=== PATIENT | female | born 1990 | race Caucasian/White ===

== ENCOUNTER 2017-06-12 08:47 | Emergency (ER) | payer OTHER ==
[~2017-06-12] VITALS: Ht 167.6 cm; Wt 129.8 kg
[2017-06-12 08:54] VITALS: BP 124/87
[2017-06-12] MEDS ORDERED: NACL 0.9% 500 ML IV ONE (09:39)
[2017-06-12] MEDS ORDERED: ONDANSETRON 4 MG/2 ML VIAL IVP ONE ×2 (09:40→10:55)
[2017-06-12] MEDS ORDERED: KETOROLAC 30 MG/ML VIAL IVP ONE (09:40)
[2017-06-12 10:33] LABS: BASOPHILS # (AUTO) 0.2 K/uL (0.00-0.22); BASOPHILS % (AUTO) 1.9 % (0.0-2.0); EOSINOPHILS # (AUTO) 0.2 K/uL (0-0.4); EOSINOPHILS % (AUTO) 1.4 % (0.0-4.0); HEMATOCRIT 44.4 % (36-48); HEMOGLOBIN 14.5 g/dL (12.0-16.0); LYMPHOCYTES # (AUTO) 1.3 K/uL (2.5-16.5); LYMPHOCYTES % (AUTO) 10.6 % (20.5-51.1); MEAN CORPUSCULAR HEMOGLOBIN 26 pg (27-31); MEAN CORPUSCULAR HGB CONC 33 g/dL (33-37); MEAN CORPUSCULAR VOLUME 79 fL (80-94); MONOCYTES # (AUTO) 0.9 K/uL (0.8-1.0); NEUTROPHILS # (AUTO) 9.6 K/uL (1.8-7.7); NEUTROPHILS % (AUTO) 79.1 % (42.2-75.2); PLATELET COUNT (AUTO) 221 K/uL (140-450); RED BLOOD CELL COUNT(AUTO) 5.65 MIL/uL (4.20-5.40); RED CELL DISTRIBUTION WIDTH 13.5 % (11.6-13.7); WHITE BLOOD COUNT (AUTO) 12.3 K/uL (4.8-10.8)
[2017-06-12 10:44] LABS: ANION GAP 16.1 (8-16); CARBON DIOXIDE 23.7 mmol/L (21-32); CREATININE 0.6 mg/dL (0.6-1.3); POTASSIUM 3.8 mmol/L (3.5-5.1)
[2017-06-12 10:50] LABS: ALBUMIN 3.7 g/dL (3.4-5.0); TOTAL BILIRUBIN 0.6 mg/dL (0.0-1.0)
--- NOTE | 2017-06-12 11:01 | NUR ---
pt c/o 07/01 pain to lower abd and severe nausea---md notified zofran iv written but no analgesic at this time. MD to speak with pt
[2017-06-12] MEDS ORDERED: PANTOPRAZOLE 40 MG INJ VIAL IVP ONE (11:05)
[2017-06-12] MEDS ORDERED: ACETAMINOPHEN EXTRA STRENGTH 500 MG TAB PO ONE (11:05)
[2017-06-12] MEDS ORDERED: IBUPROFEN 800 MG TAB PO ONE (11:05)
[2017-06-12 12:15] LABS: APPEARANCE,URINE HAZY (CLEAR); BILIRUBIN,URINE NEGATIVE (NEGATIVE); BLOOD, URINE NEGATIVE (NEGATIVE); COLOR,URINE YELLOW (YELLOW); LEUKOCYTE ESTERASE ,URINE NEGATIVE (NEGATIVE); NITRITE, URINE NEGATIVE (NEGATIVE); PH,URINE 8.5 (5.0-9.0); UGLUCOSE NEGATIVE (NEGATIVE)
[2017-06-12 12:38] VITALS: BP 142/90
--- NOTE | 2017-06-12 12:39 | NUR ---
Patient discharged with v/s stable. Written and verbal after care instructions given and explained. Patient alert, oriented and verbalized understanding of instructions. Ambulatory with steady gait. All questions addressed prior to discharge. ID band removed. Patient advised to follow up with PMD. Rx of vit b 6/ motrin given. Patient educated on indication of medication including possible reaction and side effects. Opportunity to ask questions provided and answered.
== END 2017-06-12 12:39 | disposition home or self-care (01) ==
LOC: MED 08:47
DX: O26.891 Other specified pregnancy related conditions, first trimester (principal); R10.9 Unspecified abdominal pain; J45.909 Unspecified asthma, uncomplicated; I10 Essential (primary) hypertension; Z90.49 Acquired absence of other specified parts of digestive tract; Z3A.01 Less than 8 weeks gestation of pregnancy
CPT/HCPCS: 36415; 76801; 80053; 81003; 81025; 83690; 84702; 85025; 86901; 96361; 96374; 96375; 96376; 99285; C9113; J1885; J2405; J7030; Q0092

== ENCOUNTER 2018-01-19 10:01 | Inpatient (IN) | payer OTHER ==
[~2018-01-19] VITALS: Ht 167.6 cm; Wt 127.0 kg
[2018-01-19] MEDS ORDERED: PNV11TAB3 PO (10:31)
[2018-01-19] MEDS ORDERED: OXYTOCIN 20 UNITS in LACTATED RINGERS 1,000 ML IV SCH (10:32)
[2018-01-19] MEDS ORDERED: OXYTOCIN 10 UNITS/ML VIAL IM PRN (10:35)
[2018-01-19] MEDS ORDERED: NALBUPHINE 10 MG/ML AMP IVP PRN (10:35)
[2018-01-19] MEDS ORDERED: MISOPROSTOL 25 MCG TAB VG PRN (10:35)
[2018-01-19] MEDS ORDERED: METHYLERGONOVINE 0.2 MG/ML AMP IM PRN (10:35)
[2018-01-19] MEDS ORDERED: PROMETHAZINE 25 MG/ML VIAL IVP PRN (10:35)
[2018-01-19] MEDS ORDERED: AMPICILLIN 2,000 MG in NACL 0.9% 100 ML IV SCH (11:00)
[2018-01-19 11:05] LABS: BASOPHILS % (AUTO) 0.5 % (0.0-2.0); EOSINOPHILS # (AUTO) 0.1 K/uL (0-0.4); EOSINOPHILS % (AUTO) 1.1 % (0.0-4.0); HEMOGLOBIN 12.5 g/dL (12.0-16.0); LYMPHOCYTES # (AUTO) 1.6 K/uL (2.5-16.5); LYMPHOCYTES % (AUTO) 15.8 % (20.5-51.1); MEAN CORPUSCULAR HEMOGLOBIN 25 pg (27-31); MEAN CORPUSCULAR HGB CONC 32 g/dL (33-37); MEAN CORPUSCULAR VOLUME 76.5 fL (80-94); MONOCYTES # (AUTO) 0.6 K/uL (0.8-1.0); MONOCYTES % (AUTO) 5.5 % (1.7-9.3); NEUTROPHILS # (AUTO) 7.8 K/uL (1.8-7.7); NEUTROPHILS % (AUTO) 77.1 % (42.2-75.2); PLATELET COUNT (AUTO) 184 K/uL (140-450); RED CELL DISTRIBUTION WIDTH 14.7 % (11.6-13.7); WHITE BLOOD COUNT (AUTO) 10.1 K/uL (4.8-10.8)
--- NOTE | 2018-01-19 11:32 | NUR ---
PATIENT HAS BEEN SCREENED AND CATEGORIZED LOW NUTRITION RISK. PATIENT WILL BE SEEN WITHIN 7 DAYS OF ADMISSION. 01/25/[address]
[2018-01-19] MEDS ORDERED: AMPICILLIN 2,000 MG VIAL ONE ×2 (11:37→21:07)
[2018-01-19 11:43] LABS: APPEARANCE,URINE CLEAR (CLEAR); BILIRUBIN,URINE NEGATIVE (NEGATIVE); BLOOD, URINE NEGATIVE (NEGATIVE); COLOR,URINE YELLOW (YELLOW); LEUKOCYTE ESTERASE ,URINE NEGATIVE (NEGATIVE); NITRITE, URINE NEGATIVE (NEGATIVE); UGLUCOSE NEGATIVE (NEGATIVE)
[2018-01-19] MEDS: LACTATED RINGERS 1,000 ML IV SCH ×2 (11:50→23:05)
[2018-01-19 13:15] VITALS: BP 137/79
[2018-01-19] MEDS ORDERED: AMPICILLIN 1,000 MG VIAL ONE ×3 (15:29→23:42)
[2018-01-19] MEDS ORDERED: MISOPROSTOL 25 MCG TAB ONE (15:36)
[2018-01-19] MEDS: AMPICILLIN 1,000 MG VIAL IVP SCH ×2 (19:41→23:41)
[2018-01-19] MEDS ORDERED: OXYTOCIN 20 UNITS/LR PREMIX 1,000 ML IV ONE (20:14)
[2018-01-19] MEDS: ACETAMINOPHEN 325 MG TAB PO PRN (20:46)
[2018-01-19] MEDS ORDERED: ACETAMINOPHEN 325 MG TAB ONE (20:47)
[2018-01-19] MEDS ORDERED: BUPIVACAINE 0.125%/NS PREMIX 250 ML ONE (22:08)
[2018-01-19] MEDS ORDERED: LABETALOL 200 MG TAB ONE (23:23)
[2018-01-19] MEDS ORDERED: LABETALOL 200 MG TAB PO SCH (23:30)
[2018-01-20] MEDS ORDERED: AMPICILLIN 1,000 MG VIAL ONE ×5 (03:24→19:32)
[2018-01-20] MEDS ORDERED: IBUPROFEN 800 MG TAB PO PRN (03:30)
[2018-01-20] MEDS ORDERED: TEMAZEPAM 15 MG CAP PO PRN ×2 (03:30→21:50)
[2018-01-20] MEDS ORDERED: OXYTOCIN 10 UNITS/ML VIAL IM PRN ×2 (03:30→21:50)
[2018-01-20] MEDS ORDERED: BENZOCAINE/MENTHOL 20%-0.5% 60 GM CAN TP PRN ×2 (03:30→21:50)
[2018-01-20] MEDS ORDERED: MEASLES, MUMPS, AND RUBELLA 1 VIAL SQVAC PRN ×2 (03:30→21:50)
[2018-01-20] MEDS ORDERED: oxyCODONE/APAP 5/325 MG 1 TAB TAB PO PRN ×2 (03:30→21:50)
[2018-01-20] MEDS ORDERED: METHYLERGONOVINE 0.2 MG/ML AMP IM PRN ×2 (03:30→21:50)
[2018-01-20] MEDS: AMPICILLIN 1,000 MG VIAL IVP SCH ×4 (03:40→15:47)
[2018-01-20] MEDS: ACETAMINOPHEN 325 MG TAB PO PRN (04:18)
[2018-01-20] MEDS ORDERED: ACETAMINOPHEN 325 MG TAB ONE (04:19)
[2018-01-20] MEDS: LACTATED RINGERS 1,000 ML IV SCH ×2 (06:13→16:00)
[2018-01-20] MEDS ORDERED: LABETALOL 200 MG TAB PO SCH (09:00)
[2018-01-20] MEDS ORDERED: LABETALOL 200 MG TAB ONE (11:15)
[2018-01-20] MEDS ORDERED: INFLUENZA VIRUS VACCINE QUAD 0.5 ML SYR IMVAC SCH (11:30)
[2018-01-20] MEDS: LABETALOL 200 MG TAB PO SCH (11:40)
[2018-01-20] MEDS ORDERED: OXYTOCIN 10 UNITS/ML VIAL ONE ×2 (15:57→21:14)
[2018-01-20] MEDS ORDERED: BUPIVACAINE 0.125%/NS PREMIX 250 ML ONE (16:07)
[2018-01-20] MEDS ORDERED: PROMETHAZINE 25 MG/ML VIAL ONE (16:41)
[2018-01-20] MEDS ORDERED: ONDANSETRON 4 MG/2 ML VIAL IVP PRN (16:45)
[2018-01-20] MEDS ORDERED: ONDANSETRON 4 MG/2 ML VIAL ONE (16:48)
[2018-01-20] MEDS ORDERED: DOCUSATE SOD/SENNA 50/8.6 MG 1 TAB PO SCH (21:00)
[2018-01-20] MEDS ORDERED: SODIUM PHOSPHATE 118 ML ENEM RC PRN (21:50)
[2018-01-20] MEDS ORDERED: HYDROcodone/APAP 5/325 MG 1 TAB TAB PO PRN (21:50)
[2018-01-20] MEDS ORDERED: METHYLERGONOVINE 0.2 MG TAB PO PRN (21:50)
[2018-01-20] MEDS ORDERED: DOCUSATE SOD/SENNA 50/8.6 MG 1 TAB PO PRN (22:00)
[2018-01-21] MEDS: LABETALOL 200 MG TAB PO SCH ×2 (01:06→09:35)
[2018-01-21] MEDS: HYDROcodone/APAP 5/325 MG 1 TAB TAB PO PRN ×2 (01:19→20:15)
[2018-01-21] MEDS ORDERED: AMMONIA AROMATIC 1 INHL INH ONE (02:24)
[2018-01-21 06:24] LABS: HEMATOCRIT 37.2 % (36-48); HEMOGLOBIN 11.6 g/dL (12.0-16.0)
[2018-01-21] MEDS ORDERED: DOCUSATE SOD/SENNA 50/8.6 MG 1 TAB PO SCH (21:00)
[2018-01-22] MEDS: LABETALOL 200 MG TAB PO SCH ×2 (09:11→20:43)
[2018-01-22] MEDS ORDERED: IBUP-1842 PO (14:33)
[2018-01-22] MEDS ORDERED: NITR100C7 PO (14:41)
[2018-01-22] MEDS ORDERED: LABE100T8 PO (14:42)
[2018-01-22] MEDS ORDERED: DM/P118S7 PO (14:46)
[2018-01-22] MEDS: HYDROcodone/APAP 5/325 MG 1 TAB TAB PO PRN (20:43)
== END 2018-01-22 21:20 | disposition home or self-care (01) | DRG 560 ==
LOC: MLD 10:06 → MFCC 01-21 00:53
PROVIDERS: ADMIT Obstetrics & Gynecology; ATTEND Obstetrics & Gynecology
PROC: 10E0XZZ Delivery of Products of Conception, External Approach (ICD-10-PCS; principal; 2018-01-20)
PROC: 3E033VJ Introduction of Other Hormone into Peripheral Vein, Percutaneous Approach (ICD-10-PCS; 2018-01-20)
PROC: 00HU33Z Insertion of Infusion Device into Spinal Canal, Percutaneous Approach (ICD-10-PCS; 2018-01-20)
PROC: 3E0R3BZ Introduction of Anesthetic Agent into Spinal Canal, Percutaneous Approach (ICD-10-PCS; 2018-01-20)
DX: O99.824 Streptococcus B carrier state complicating childbirth (principal); Z68.42 Body mass index [BMI] 45.0-49.9, adult; Z37.0 Single live birth; Z3A.39 39 weeks gestation of pregnancy; O10.92 Unspecified pre-existing hypertension complicating childbirth; O99.52 Diseases of the respiratory system complicating childbirth; J45.909 Unspecified asthma, uncomplicated; O99.354 Diseases of the nervous system complicating childbirth; O99.214 Obesity complicating childbirth; E66.01 Morbid (severe) obesity due to excess calories; O77.0 Labor and delivery complicated by meconium in amniotic fluid; G47.33 Obstructive sleep apnea (adult) (pediatric); Z28.21 Immunization not carried out because of patient refusal
CPT/HCPCS: 36415; 51702; 59200; 59409; 81003; 85018; 85025; 86592; 86886; 86900; 86901; 90658; J0290; J2405; J2550; J2590; J3490; J7120

== ENCOUNTER 2019-02-12 09:56 | Emergency (ER) | payer OTHER ==
[~2019-02-12] VITALS: Ht 167.6 cm; Wt 133.8 kg
[~2019-02-12 09:56] MED LIST: IBUP-1842 PO; LABE100T8 PO; NITR100C7 PO; PNV11TAB3 PO
[2019-02-12 10:01] VITALS: BP 129/75
--- NOTE | 2019-02-12 10:11 | NUR ---
PT AMBULATED TO ED BED 07
--- NOTE | 2019-02-12 10:20 | NUR ---
PATIENT PRESENTS TO ED WITH C/O RT EYE PAIN, SWOLLEN AND WITH THICK YELLOW DISCHARGE X 1 DAY. RT EYELID NOTED RED AND SWOLLEN. PT STATES PAIN IS 10/10;BURNING AND ITCHING SENSATION. DENIES NAUSEA, VOMITING OR FEVER. AFEBRILE AT THIS TIME. VSS. PATIENT POSITIONED FOR COMFORT; HOB ELEVATED; BEDRAILS UP X1; BED DOWN. PENDING ER MD EVALUATION.
--- NOTE | 2019-02-12 12:34 | NUR ---
ER MD DR ROWE AT BEDSIDE
[2019-02-12] MEDS ORDERED: ERYTHROMYCIN 0.5% OPTH OINT 1 GM TUBE OP ONE (12:45)
[2019-02-12 13:27] VITALS: BP 109/75
--- NOTE | 2019-02-12 13:27 | NUR ---
Patient discharged with v/s stable. Written and verbal after care instructions given and explained. Patient alert, oriented and verbalized understanding of instructions. Ambulatory with steady gait. All questions addressed prior to discharge. ID band removed. Patient advised to follow up with PMD. Rx of ERYTHROMYCIN OINTMENT 0.5% given. Patient educated on indication of medication including possible reaction and side effects. Opportunity to ask questions provided and answered.
== END 2019-02-12 13:27 | disposition home or self-care (01) ==
LOC: MED 09:56
DX: H10.9 Unspecified conjunctivitis (principal); B96.89 Other specified bacterial agents as the cause of diseases classified elsewhere; J45.909 Unspecified asthma, uncomplicated; I10 Essential (primary) hypertension; Z90.49 Acquired absence of other specified parts of digestive tract; Z79.899 Other long term (current) drug therapy
CPT/HCPCS: 99283; C1758

== ENCOUNTER 2019-04-02 23:59 | Emergency (ER) | payer OTHER ==
[~2019-04-02] VITALS: Ht 170.2 cm; Wt 133.4 kg
[2019-04-03 00:08] VITALS: BP 122/85
--- NOTE | 2019-04-03 00:20 | NUR ---
TO LOBBY A/W BED,AMBULATORY, EKG DONE , ERMD NOTED
--- NOTE | 2019-04-03 03:40 | NUR ---
TO BED # 07 AMBULATORY
--- NOTE | 2019-04-03 04:15 | NUR ---
28 YO F BIB SELF PRESENTS TO ED C/O 8/10 CHEST PAIN, DIFFICULTY BREATHING, AND EPIGASTRIC PAIN X 10 DAYS. PT ALSO C/O N/V AND DIZZINESS X 3 DAYS. PT STATES SHE FEELS NAUSEOUS AND DIZZY AT THIS TIME. LAST EMESIS X 6 HOURS AGO. -- PT AWAKE, ALERT, CALM, COOPERATIVE. ANSWERING QUESTIONS APPROPRIATELY. BEHAVIOR AGE APPROPRIATE. -- SKIN PINK, WARM, DRY. BREATHING EVEN, UNLABORED. SPO2 96% ON RA. PMH-- HTN, SLEEP APNEA, ASTHMA
--- NOTE | 2019-04-03 05:05 | NUR ---
DR. GAMBINO EVALUATING AT BEDSIDE.
[2019-04-03] MEDS ORDERED: FAMOTIDINE 20 MG/2 ML VIAL IVP ONE (05:15)
[2019-04-03] MEDS ORDERED: LIDOCAINE VISCOUS 2% 20 ML UDC PO ONE (05:15)
[2019-04-03] MEDS ORDERED: ALUMINUM HYD/MAG/SIMETHICONE 30 ML UDC PO ONE (05:15)
[2019-04-03] MEDS ORDERED: DICYCLOMINE 20 MG/2 ML VIAL IM ONE (05:15)
--- NOTE | 2019-04-03 06:25 | NUR ---
URINE COLLECTED AND SENT TO LAB.
--- NOTE | 2019-04-03 06:30 | NUR ---
LABS DRAWN BY RN AT BEDSIDE.
[2019-04-03 06:51] LABS: BASOPHILS # (AUTO) 0.2 K/uL (0.00-0.22); BASOPHILS % (AUTO) 1.7 % (0.0-2.0); EOSINOPHILS # (AUTO) 0.4 K/uL (0-0.4); EOSINOPHILS % (AUTO) 3.6 % (0.0-4.0); HEMOGLOBIN 14.5 g/dL (12.0-16.0); LYMPHOCYTES # (AUTO) 2.4 K/uL (2.5-16.5); LYMPHOCYTES % (AUTO) 21.7 % (20.5-51.1); MEAN CORPUSCULAR HEMOGLOBIN 25 pg (27-31); MEAN CORPUSCULAR HGB CONC 32 g/dL (33-37); MEAN CORPUSCULAR VOLUME 76.8 fL (80-94); MONOCYTES # (AUTO) 0.6 K/uL (0.8-1.0); MONOCYTES % (AUTO) 4.9 % (1.7-9.3); NEUTROPHILS # (AUTO) 7.6 K/uL (1.8-7.7); NEUTROPHILS % (AUTO) 68.1 % (42.2-75.2); PLATELET COUNT (AUTO) 252 K/uL (140-450); RED BLOOD CELL COUNT(AUTO) 5.86 MIL/uL (4.20-5.40); RED CELL DISTRIBUTION WIDTH 14.8 % (11.6-13.7); WHITE BLOOD COUNT (AUTO) 11.2 K/uL (4.8-10.8)
[2019-04-03 07:01] LABS: CARBON DIOXIDE 25.8 mmol/L (21-32); CREATININE 0.8 mg/dL (0.6-1.3); POTASSIUM 3.8 mmol/L (3.5-5.1)
[2019-04-03 07:06] LABS: ALBUMIN 4.2 g/dL (3.4-5.0); TOTAL BILIRUBIN 0.7 mg/dL (0.0-1.0)
--- NOTE | 2019-04-03 07:11 | NUR ---
RECEIVED REPORT FROM ADRIEL CAMARENA
--- NOTE | 2019-04-03 07:49 | NUR ---
PT REPORTS N/V AND EPIGASTRIC PAIN AT THIS TIME. PT DENIES SOB. ER NOTIFIED.
[2019-04-03] MEDS ORDERED: KETOROLAC 30 MG/ML VIAL IM ONE (08:30)
[2019-04-03] MEDS ORDERED: KETOROLAC 30 MG/ML VIAL IM STA (08:45)
--- NOTE | 2019-04-03 08:45 | NUR ---
OKAY TO GIVE TORADOL 30MG IVP PER MD.
--- NOTE | 2019-04-03 09:42 | NUR ---
Patient discharged with v/s stable. Written and verbal after care instructions given and explained. Patient alert, oriented and verbalized understanding of instructions. Ambulatory with steady gait. All questions addressed prior to discharge. ID band removed. Patient advised to follow up with PMD. Rx of AZITHROMYCIN, MYLANTA, AND GAUIATUSSIN given. Patient educated on indication of medication including possible reaction and side effects. Opportunity to ask questions provided and answered.
[2019-04-03 09:46] VITALS: BP 119/60
== END 2019-04-03 09:42 | disposition home or self-care (01) ==
LOC: MED 23:59
DX: R10.13 Epigastric pain (principal); R07.89 Other chest pain; J45.909 Unspecified asthma, uncomplicated; I10 Essential (primary) hypertension; Z79.899 Other long term (current) drug therapy
CPT/HCPCS: 36415; 71045; 80053; 81025; 83690; 84484; 85025; 85379; 93005; 96372; 96374; 99284; J0500; J1885; J3490; Q0092

== ENCOUNTER 2019-04-05 02:21 | Emergency (ER) | payer OTHER ==
[~2019-04-05] VITALS: Ht 170.2 cm; Wt 133.8 kg
[2019-04-05 02:21] VITALS: BP 137/64
--- NOTE | 2019-04-05 02:21 | NUR ---
PT JUANA BLS. TAKEN TO BED 2
[2019-04-05 02:56] VITALS: BP 137/64
--- NOTE | 2019-04-05 02:56 | NUR ---
28 Y/O F BIBA WITH C/O SOB FOR 1 HOUR PRIOR TO ARRIVAL. C/O DIZZINESS AND COUGH X 4 DAYS. BILATERAL LUNG LARIOS CLEAR. O2 SATURATION MAINTAINED AT 97% ON ROOM AIR. CAP REFILL LESS THAN 3 SECONDS. SKIN COLOR NORMAL PER ETHNICITY. ERMD NOTIFIED. WILL CONTINUE TO MONITOR. -20G IV INSERTED BY EMS.
[2019-04-05] MEDS ORDERED: PANTOPRAZOLE 40 MG TABEC PO ONE (03:05)
[2019-04-05] MEDS ORDERED: ALUMINUM HYD/MAG/SIMETHICONE 30 ML UDC PO ONE (03:05)
--- NOTE | 2019-04-05 03:33 | NUR ---
Patient discharged with v/s stable. Written and verbal after care instructions given and explained. Patient alert, oriented and verbalized understanding of instructions. Ambulatory with steady gait. All questions addressed prior to discharge. ID band removed. Patient advised to follow up with PMD. Rx of Protonix and Maalox given. Patient educated on indication of medication including possible reaction and side effects. Opportunity to ask questions provided and answered.
== END 2019-04-05 03:33 | disposition home or self-care (01) ==
LOC: MED 02:21
DX: K21.9 Gastro-esophageal reflux disease without esophagitis (principal); J45.909 Unspecified asthma, uncomplicated; I10 Essential (primary) hypertension; Z79.899 Other long term (current) drug therapy
CPT/HCPCS: 99283

== ENCOUNTER 2020-12-05 19:03 | Emergency (ER) | payer OTHER ==
[~2020-12-05] VITALS: Ht 167.6 cm; Wt 120.7 kg
[2020-12-05 19:29] VITALS: BP 133/80
--- NOTE | 2020-12-05 19:29 | NUR ---
TO BED AMBULATORY
--- NOTE | 2020-12-05 19:45 | NUR ---
ekg performed at bedside. ekg reads sinus rhythm @ 90
--- NOTE | 2020-12-05 19:50 | NUR ---
30 Y/O F BIB SELF FROM HOME, PATIENT PRESENTS TO ED WITH CHEST PAIN ADN ABD PAIN THAT HAS STARTED 4 DAYS AGO 12/01/20 . PT STATES SHE HAS BODY ACHES, LOWER ABD PAIN WITH NAUSEA, ONE EPISODE OF EMESIS 3 DAYS AGO. PT STATES SHE HAS BEEN FEELING CONSTIPATED, NO BURNING OR BLOOD PRESENT IN URINE. SKIN IS PINK/WARM/DRY; AAOX4 WITH EVEN AND STEADY GAIT; WHEEZING AUDIBLE THROUGHOUT BILATERAL LOBES UPON EXPIRATORY AND INSPIRATORY. HR EVEN AND REGULAR; PT STATES SHE TESTED POSITIVE FOR COVID IN OCTOBER; PATIENT STATES PAIN OF 10/10 AT THIS TIME; VSS; PATIENT POSITIONED FOR COMFORT; HOB ELEVATED; BEDRAILS UP X2; BED DOWN. ER MD MADE AWARE OF PT STATUS. NKA. PMH: ASTHMA, HTN, DM2.
--- NOTE | 2020-12-05 19:50 | NUR ---
PT IS ATTACHED TO PULSE O2, CARDIAC AND BP MONITORING.
[2020-12-05 20:55] LABS: BASOPHILS # (AUTO) 0.1 K/uL (0.00-0.22); BASOPHILS % (AUTO) 1.1 % (0.0-2.0); EOSINOPHILS # (AUTO) 0.1 K/uL (0-0.4); EOSINOPHILS % (AUTO) 0.9 % (0.0-4.0); HEMATOCRIT 42.2 % (36-48); HEMOGLOBIN 13.8 g/dL (12.0-16.0); LYMPHOCYTES # (AUTO) 2.3 K/uL (2.5-16.5); LYMPHOCYTES % (AUTO) 19.8 % (20.5-51.1); MEAN CORPUSCULAR HEMOGLOBIN 26 pg (27-31); MEAN CORPUSCULAR HGB CONC 33 g/dL (33-37); MEAN CORPUSCULAR VOLUME 78.6 fL (80-94); MONOCYTES # (AUTO) 0.8 K/uL (0.8-1.0); MONOCYTES % (AUTO) 6.9 % (1.7-9.3); NEUTROPHILS # (AUTO) 8.2 K/uL (1.8-7.7); NEUTROPHILS % (AUTO) 71.3 % (42.2-75.2); PLATELET COUNT (AUTO) 263 K/uL (140-450); RED BLOOD CELL COUNT(AUTO) 5.37 MIL/uL (4.20-5.40); RED CELL DISTRIBUTION WIDTH 14.6 % (11.6-13.7); WHITE BLOOD COUNT (AUTO) 11.4 K/uL (4.8-10.8)
--- NOTE | 2020-12-05 21:06 | NUR ---
PT BACK FROM RADIOLOGY
[2020-12-05 21:08] LABS: ALBUMIN 4.1 g/dL (3.4-5.0); ANION GAP 17.2 (8-16); CARBON DIOXIDE 21.2 mmol/L (21-32); CREATININE 0.7 mg/dL (0.6-1.3); POTASSIUM 3.4 mmol/L (3.5-5.1); TOTAL BILIRUBIN 0.6 mg/dL (0.0-1.0)
[2020-12-05] MEDS ORDERED: ONDANSETRON 4 MG ODT PO ONE (21:50)
[2020-12-05] MEDS ORDERED: HYDROcodone/APAP 5/325 MG 1 TAB TAB PO ONE (21:50)
[2020-12-05] MEDS ORDERED: ACET-8386 PO (22:10)
[2020-12-05 22:31] VITALS: BP 113/54
--- NOTE | 2020-12-05 22:31 | NUR ---
Patient discharged with v/s stable. Written and verbal after care instructions given and explained. Patient alert, oriented and verbalized understanding of instructions. Ambulatory with steady gait. All questions addressed prior to discharge. ID band removed. Patient advised to follow up with PMD. Rx of HYDROCODONE/ACETAMINOPHEN given. Patient educated on indication of medication including possible reaction and side effects. Opportunity to ask questions provided and answered.
== END 2020-12-05 22:31 | disposition home or self-care (01) ==
LOC: MED 19:03
DX: M79.10 Myalgia, unspecified site (principal); R07.9 Chest pain, unspecified; R10.13 Epigastric pain; F41.9 Anxiety disorder, unspecified; F43.9 Reaction to severe stress, unspecified; M54.9 Dorsalgia, unspecified; J45.909 Unspecified asthma, uncomplicated; K21.9 Gastro-esophageal reflux disease without esophagitis; I10 Essential (primary) hypertension; Z90.49 Acquired absence of other specified parts of digestive tract; Z79.899 Other long term (current) drug therapy
CPT/HCPCS: 36415; 74022; 80053; 81025; 83690; 84484; 85025; 93005; 99285; Q0162; 81002

== ENCOUNTER 2020-12-25 18:55 | Emergency (ER) | payer OTHER ==
[~2020-12-25] VITALS: Ht 167.6 cm; Wt 121.1 kg
[~2020-12-25 18:55] MED LIST changes: +ACET-8386 PO
[2020-12-25 19:03] VITALS: BP 143/86
--- NOTE | 2020-12-25 19:15 | NUR ---
TO BED 6, AMBULATORY
--- NOTE | 2020-12-25 19:15 | NUR ---
PATIENT PRESENTS TO ED WITH c/o pelvic pain which started yesterday and umbilical hernia pain which started today . PT STATES HAS HAD PAINFUL URINATION . DENIES N/V/D; SKIN IS PINK/WARM/DRY; AAOX4 WITH EVEN AND STEADY GAIT; LUNGS CLEAR BL; HR EVEN AND REGULAR; PT DENIES ANY FEVER, CP, SOB, OR COUGH AT THIS TIME; PATIENT STATES PAIN OF 10/10 AT THIS TIME; VSS; PATIENT POSITIONED FOR COMFORT; HOB ELEVATED; BEDRAILS UP X2; BED DOWN. ER MD MADE AWARE OF PT STATUS.
[2020-12-25 19:26] LABS: APPEARANCE,URINE CLEAR (CLEAR); BILIRUBIN,URINE NEGATIVE (NEGATIVE); BLOOD, URINE TRACE-L (NEGATIVE); COLOR,URINE YELLOW (YELLOW); LEUKOCYTE ESTERASE ,URINE 1+ (NEGATIVE); NITRITE, URINE NEGATIVE (NEGATIVE); UGLUCOSE NEGATIVE (NEGATIVE)
--- NOTE | 2020-12-25 19:28 | NUR ---
PT TO RADIOLOGY VIA W/C
[2020-12-25] MEDS ORDERED: CEPH500C16 PO (20:34)
[2020-12-25] MEDS ORDERED: MIRABULK PO (20:34)
[2020-12-25 20:42] VITALS: BP 143/86
--- NOTE | 2020-12-25 20:42 | NUR ---
Patient discharged with v/s stable. Written and verbal after care instructions given and explained. Patient alert, oriented and verbalized understanding of instructions. Ambulatory with steady gait. All questions addressed prior to discharge. ID band removed. Patient advised to follow up with PMD. Rx of KEFLEX, AND MIRALAX given. Patient educated on indication of medication including possible reaction and side effects. Opportunity to ask questions provided and answered.
== END 2020-12-25 20:42 | disposition home or self-care (01) ==
LOC: MED 18:55
DX: N39.0 Urinary tract infection, site not specified (principal); J45.909 Unspecified asthma, uncomplicated; K21.9 Gastro-esophageal reflux disease without esophagitis; I10 Essential (primary) hypertension; Z79.899 Other long term (current) drug therapy; Z90.49 Acquired absence of other specified parts of digestive tract
CPT/HCPCS: 74021; 81001; 81025; 87086; 99284

== ENCOUNTER 2021-02-05 13:06 | Emergency (ER) | payer OTHER ==
[~2021-02-05] VITALS: Ht 167.6 cm; Wt 98.0 kg
[~2021-02-05 13:06] MED LIST changes: +CEPH500C16 PO; +MIRABULK PO
[2021-02-05 13:09] VITALS: BP 117/67
--- NOTE | 2021-02-05 13:15 | NUR ---
30 Y/O FEMALE C/O TOOTHACHE FOR 1 MONTH PT STATES CONSTANT, ACHING 10/10 PAIN ON THE LEFT SIDE. PT STATES A BROKEN FILLING AND SEEING A DENTIST [id number] AGO. RX: TYLENOL WITH NO RELIEF PMH: HTN, DM, ASTHMA NKA
--- NOTE | 2021-02-05 13:19 | NUR ---
ANGELITA Walden at bedside examining pt
[2021-02-05] MEDS ORDERED: KETOROLAC 30 MG/ML VIAL IM ONE (13:20)
[2021-02-05] MEDS ORDERED: AMOX1TAB8 PO (13:24)
[2021-02-05] MEDS ORDERED: TRAM50TA3 PO (13:24)
[2021-02-05 13:51] VITALS: BP 117/67
--- NOTE | 2021-02-05 13:51 | NUR ---
Patient discharged with v/s stable. Written and verbal after care instructions given and explained. Patient alert, oriented and verbalized understanding of instructions. Ambulatory with steady gait. All questions addressed prior to discharge. ID band removed. Patient advised to follow up with PMD. Rx of AMOXICILLIN AND TRAMADOL given. Patient educated on indication of medication including possible reaction and side effects. Opportunity to ask questions provided and answered.
== END 2021-02-05 13:51 | disposition home or self-care (01) ==
LOC: MED 13:06
DX: K08.89 Other specified disorders of teeth and supporting structures (principal); J45.909 Unspecified asthma, uncomplicated; E11.9 Type 2 diabetes mellitus without complications; K21.9 Gastro-esophageal reflux disease without esophagitis; I10 Essential (primary) hypertension; Z79.899 Other long term (current) drug therapy; Z90.49 Acquired absence of other specified parts of digestive tract
CPT/HCPCS: 96372; 99283; J1885

== ENCOUNTER 2021-06-20 15:45 | Emergency (ER) | payer OTHER ==
[~2021-06-20] VITALS: Ht 167.6 cm; Wt 131.1 kg
[~2021-06-20 15:45] MED LIST changes: +AMOX1TAB8 PO; +TRAM50TA3 PO
[2021-06-20 15:46] VITALS: BP 139/89
--- NOTE | 2021-06-20 16:00 | NUR ---
30YO F C/O ABDOMINAL PAIN X 1 DAY. PAIN 10/10, ACHING. DENIES N/V/D. LBM THIS MORNING. NO MEDICATION TAKEN. LMP: JUN 05, 2021 PMH: DM, HTN, ASTHMA MEDS: LISINOPRIL, ALBUTEROL ALLERGY TO UNRECALLED HTN MEDICATION
[2021-06-20] MEDS ORDERED: DICYCLOMINE HCL LIQUID 20 MG, ALUMINUM HYD/MAG/SIMETHICONE 30 ML, LIDOCAINE VISCOUS 2% ... PO ONE ×3 (16:10)
[2021-06-20] MEDS ORDERED: DICYCLOMINE HCL LIQUID 10 MG/5 ML UDC ONE (16:15)
[2021-06-20] MEDS ORDERED: ALUMINUM HYD/MAG/SIMETHICONE 30 ML UDC ONE (16:15)
[2021-06-20] MEDS ORDERED: IBUP-2213 PO (16:18)
[2021-06-20] MEDS ORDERED: OMEP40EC24 PO (16:18)
--- NOTE | 2021-06-20 16:43 | NUR ---
Patient discharged with v/s stable. Written and verbal after care instructions given and explained. Patient alert, oriented and verbalized understanding of instructions. Ambulatory with steady gait. All questions addressed prior to discharge. ID band removed. Patient advised to follow up with PMD. Rx of IBUPROFEN AND OMEPRAZOLE given. Patient educated on indication of medication including possible reaction and side effects. Opportunity to ask questions provided and answered.
== END 2021-06-20 16:43 | disposition home or self-care (01) ==
LOC: MED 15:45
DX: R10.13 Epigastric pain (principal); E11.9 Type 2 diabetes mellitus without complications; K21.9 Gastro-esophageal reflux disease without esophagitis; J45.909 Unspecified asthma, uncomplicated; I10 Essential (primary) hypertension; Z90.49 Acquired absence of other specified parts of digestive tract; Z79.899 Other long term (current) drug therapy
CPT/HCPCS: 81002; 81025; 99282

== ENCOUNTER 2022-04-05 07:36 | Emergency (ER) | payer OTHER ==
[~2022-04-05] VITALS: Ht 167.6 cm; Wt 116.6 kg
[~2022-04-05 07:36] MED LIST changes: +AMOX-1230 PO; -AMOX1TAB8 PO; +IBUP-2213 PO; +OMEP40EC24 PO
[2022-04-05 07:39] VITALS: BP 133/80
--- NOTE | 2022-04-05 07:44 | NUR ---
PT AMBULATED TO BED 10.
--- NOTE | 2022-04-05 07:54 | NUR ---
31 Y/O Female BIB self for c/o fatigue x 4 days. Denies N/V/D/CP at this time. AOX4, able to make needs known. Resp even and unlabored. Pt BG 334, reported to Dr Arguelles. Denies any changes in vision.
[2022-04-05] MEDS ORDERED: LACTATED RINGERS 1,000 ML IV ONE ×2 (08:25→09:15)
[2022-04-05 08:37] LABS: APPEARANCE,URINE CLEAR (CLEAR); BILIRUBIN,URINE NEGATIVE (NEGATIVE); BLOOD, URINE TRACE-I (NEGATIVE); COLOR,URINE YELLOW (YELLOW); LEUKOCYTE ESTERASE ,URINE NEGATIVE (NEGATIVE); NITRITE, URINE NEGATIVE (NEGATIVE); UGLUCOSE 3+ (NEGATIVE)
[2022-04-05 08:59] LABS: BASOPHILS % (AUTO) 0.6 % (0.0-2.0); EOSINOPHILS # (AUTO) 0.2 K/uL (0-0.4); EOSINOPHILS % (AUTO) 2.3 % (0.0-4.0); HEMATOCRIT 46.1 % (36-48); HEMOGLOBIN 15.3 g/dL (12.0-16.0); LYMPHOCYTES # (AUTO) 2.2 K/uL (2.5-16.5); LYMPHOCYTES % (AUTO) 28.5 % (20.5-51.1); MEAN CORPUSCULAR HEMOGLOBIN 26 pg (27-31); MEAN CORPUSCULAR HGB CONC 33 g/dL (33-37); MEAN CORPUSCULAR VOLUME 78.6 fL (80-94); MONOCYTES # (AUTO) 0.5 K/uL (0.8-1.0); NEUTROPHILS # (AUTO) 4.7 K/uL (1.8-7.7); NEUTROPHILS % (AUTO) 61.6 % (42.2-75.2); PLATELET COUNT (AUTO) 200 K/uL (140-450); RED BLOOD CELL COUNT(AUTO) 5.87 MIL/uL (4.20-5.40); RED CELL DISTRIBUTION WIDTH 13.5 % (11.6-13.7); WHITE BLOOD COUNT (AUTO) 7.6 K/uL (4.8-10.8)
[2022-04-05 09:28] LABS: ALBUMIN 3.7 g/dL (3.4-5.0); ANION GAP 14.7 (8-16); CARBON DIOXIDE 23.5 mmol/L (21-32); CREATININE 0.6 mg/dL (0.6-1.3); POTASSIUM 4.2 mmol/L (3.5-5.1); TOTAL BILIRUBIN 0.5 mg/dL (0.0-1.0)
[2022-04-05 09:28] LABS: RBC,URINE 0-5 /HPF (0-5); WBC,URINE 0-5 /HPF (0-5)
[2022-04-05 09:30] LABS: YEAST,URINE Few /HPF (None Seen)
--- NOTE | 2022-04-05 10:45 | NUR ---
pt. Ambulated to BR. pt stated she feels much better. made aware
--- NOTE | 2022-04-05 12:23 | NUR ---
VBG done, made aware of results. Pt. resting comfortably at this time.
[2022-04-05] MEDS ORDERED: BLOO1EAC40 MC (13:24)
[2022-04-05] MEDS ORDERED: FLUC150T PO (13:24)
[2022-04-05] MEDS ORDERED: LANC-886 TP (13:24)
[2022-04-05 13:41] VITALS: BP 127/69
--- NOTE | 2022-04-05 13:41 | NUR ---
Patient discharged with v/s stable. Written and verbal after care instructions including but not limited to Diabetic nutrution and education given and explained with teachback. Patient alert, oriented and verbalized understanding of instructions. Ambulatory with steady gait. All questions addressed prior to discharge. ID band removed. Patient advised to follow up with PMD. Rx of fluconazole/lancets/blood-glucose meter given. Patient educated on indication of medication including possible reaction and side effects. Opportunity to ask questions provided and answered.
--- NOTE | 2022-04-08 08:38 | NUR ---
1341- LATE ENTRY- IV LR FLUIDS DISCONTINUED AT 1341.
== END 2022-04-05 13:41 | disposition home or self-care (01) ==
LOC: MED 07:36
DX: E11.65 Type 2 diabetes mellitus with hyperglycemia (principal); E86.0 Dehydration; B37.3 Candidiasis of vulva and vagina; J45.909 Unspecified asthma, uncomplicated; K21.9 Gastro-esophageal reflux disease without esophagitis; I10 Essential (primary) hypertension; Z79.899 Other long term (current) drug therapy; Z88.8 Allergy status to other drugs, medicaments and biological substances
CPT/HCPCS: 36415; 80053; 81001; 81025; 82009; 82803; 85025; 87086; 96360; 96361; 99283; J7120

== ENCOUNTER 2023-09-06 00:54 | Emergency (ER) | payer OTHER ==
[~2023-09-06] VITALS: Ht 162.6 cm; Wt 120.7 kg
[~2023-09-06 00:54] MED LIST changes: -ACET-8386 PO; +ACET-8905 PO; +BLOO1EAC40 MC; +FLUC150T PO; +LABE100T11 PO; -LABE100T8 PO; +LANC-886 TP
[2023-09-06 01:45] VITALS: BP 112/79; PULSE 110; RESP 16; TEMP 98.6; O2SAT 97
[2023-09-06] MEDS ORDERED: ONDANSETRON 4 MG ODT PO ONE (02:55)
[2023-09-06] MEDS ORDERED: IBUP-2213 PO (03:09)
[2023-09-06] MEDS ORDERED: LOPE-289 PO (03:09)
[2023-09-06] MEDS ORDERED: ONDA8TAB87 PO (03:09)
[2023-09-06 03:56] VITALS: BP 112/79; PULSE 110; RESP 16; TEMP 98.6; O2SAT 97
== END 2023-09-06 03:55 | disposition home or self-care (01) ==
LOC: MED 00:54
DX: R10.13 Epigastric pain (principal); R11.2 Nausea with vomiting, unspecified; R19.7 Diarrhea, unspecified; I10 Essential (primary) hypertension; J45.909 Unspecified asthma, uncomplicated; K21.9 Gastro-esophageal reflux disease without esophagitis; E11.9 Type 2 diabetes mellitus without complications; Z79.4 Long term (current) use of insulin; Z79.899 Other long term (current) drug therapy; Z88.8 Allergy status to other drugs, medicaments and biological substances
CPT/HCPCS: 81025; 99283; Q0162; 81002

== ENCOUNTER 2023-12-02 16:01 | Emergency (ER) | payer OTHER ==
[~2023-12-02] VITALS: Ht 167.6 cm; Wt 121.6 kg
[~2023-12-02 16:01] MED LIST changes: +LOPE-289 PO; +ONDA8TAB87 PO
[2023-12-02 16:10] VITALS: BP 116/73; PULSE 88; RESP 18; TEMP 97.5; O2SAT 98
[2023-12-02] MEDS ORDERED: KETOROLAC 30 MG/ML VIAL IVP ONE (16:30)
[2023-12-02 16:54] LABS: APPEARANCE,URINE CLEAR (CLEAR); BILIRUBIN,URINE NEGATIVE (NEGATIVE); BLOOD, URINE TRACE-I (NEGATIVE); COLOR,URINE YELLOW (YELLOW); LEUKOCYTE ESTERASE ,URINE NEGATIVE (NEGATIVE); NITRITE, URINE NEGATIVE (NEGATIVE); PROTEIN,URINE 1+ (NEGATIVE); UGLUCOSE 2+ (NEGATIVE)
[2023-12-02] MEDS: NACL 0.9% 1,000 ML IV ONE (16:56)
[2023-12-02 17:02] LABS: BACTERIA,URINE FEW /HPF (None Seen); RBC,URINE 0-5 /HPF (0-5); SQUAMOUS EPITHELIAL CELL,UR 4-10 (MOD) /LPF (0-3 (FEW)); WBC,URINE 0-5 /HPF (0-5)
[2023-12-02 17:17] LABS: BASOPHILS # (AUTO) 0.1 K/uL (0.00-0.22); BASOPHILS % (AUTO) 1.1 % (0.0-2.0); EOSINOPHILS # (AUTO) 0.2 K/uL (0-0.4); EOSINOPHILS % (AUTO) 2.2 % (0.0-4.0); HEMATOCRIT 45.9 % (36-48); HEMOGLOBIN 15.3 g/dL (12.0-16.0); LYMPHOCYTES # (AUTO) 1.6 K/uL (2.5-16.5); LYMPHOCYTES % (AUTO) 15.7 % (20.5-51.1); MEAN CORPUSCULAR HEMOGLOBIN 27 pg (27-31); MEAN CORPUSCULAR HGB CONC 33 g/dL (33-37); MEAN CORPUSCULAR VOLUME 79.7 fL (80-94); MONOCYTES # (AUTO) 0.7 K/uL (0.8-1.0); MONOCYTES % (AUTO) 7.4 % (1.7-9.3); NEUTROPHILS # (AUTO) 7.3 K/uL (1.8-7.7); NEUTROPHILS % (AUTO) 73.6 % (42.2-75.2); PLATELET COUNT (AUTO) 210 K/uL (140-450); RED BLOOD CELL COUNT(AUTO) 5.76 MIL/uL (4.20-5.40); RED CELL DISTRIBUTION WIDTH 13.8 % (11.6-13.7); WHITE BLOOD COUNT (AUTO) 9.9 K/uL (4.8-10.8)
[2023-12-02] MEDS ORDERED: ALUMINUM HYD/MAG/SIMETHICONE 30 ML UDC ONE (17:18)
[2023-12-02] MEDS ORDERED: DICYCLOMINE HCL LIQUID 10 MG/5 ML UDC ONE (17:18)
[2023-12-02] MEDS: FAMOTIDINE 20 MG/2 ML VIAL IVP ONE (17:26)
[2023-12-02] MEDS: DICYCLOMINE HCL LIQUID 20 MG, ALUMINUM HYD/MAG/SIMETHICONE 30 ML, LIDOCAINE VISCOUS 2% ... PO ONE (17:28)
[2023-12-02 17:29] LABS: ALBUMIN 3.4 g/dL (3.4-5.0); ANION GAP 10.8 (8-16); CALCIUM 9.1 mg/dL (8.5-10.1); CARBON DIOXIDE 27.8 mmol/L (21-32); CREATININE 0.6 mg/dL (0.6-1.3); POTASSIUM 3.6 mmol/L (3.5-5.1); TOTAL BILIRUBIN 0.5 mg/dL (0.0-1.0)
[2023-12-02] MEDS ORDERED: LID5T TP (18:25)
[2023-12-02] MEDS ORDERED: OMEP40EC23 PO (18:25)
[2023-12-02] MEDS ORDERED: FAMO-90 PO (18:25)
[2023-12-02] MEDS ORDERED: ACET-8905 PO (18:25)
[2023-12-02] MEDS: LIDOCAINE 5% 1 EA PATCH TP ONE (18:37)
[2023-12-02 18:46] VITALS: BP 125/82; PULSE 88; RESP 16; TEMP 98; O2SAT 99
== END 2023-12-02 18:40 | disposition home or self-care (01) ==
LOC: MED 16:01
DX: K21.9 Gastro-esophageal reflux disease without esophagitis (principal); M54.50 Low back pain, unspecified; J45.909 Unspecified asthma, uncomplicated; I10 Essential (primary) hypertension; E11.9 Type 2 diabetes mellitus without complications; Z88.8 Allergy status to other drugs, medicaments and biological substances; Z79.4 Long term (current) use of insulin; Z79.899 Other long term (current) drug therapy; Z79.1 Long term (current) use of non-steroidal anti-inflammatories (NSAID)
CPT/HCPCS: 36415; 80053; 81001; 81025; 82948; 83690; 85025; 96361; 96374; 99283; J3490; J7030

== ENCOUNTER 2024-06-17 20:51 | Emergency (ER) | payer OTHER ==
[~2024-06-17] VITALS: Ht 167.6 cm; Wt 122.5 kg
[~2024-06-17 20:51] MED LIST changes: +FAMO-90 PO; +LID5T TP; +OMEP40EC23 PO
[2024-06-17 21:13] VITALS: BP 144/100; PULSE 89; RESP 18; TEMP 98; O2SAT 97
[2024-06-17 22:10] VITALS: BP 143/87; PULSE 89; RESP 16; O2SAT 95
[2024-06-17] MEDS ORDERED: CEPH-588 PO (22:17)
[2024-06-17] MEDS: MORPHINE SULFATE 4 MG/ML SYR IM ONE (22:24)
== END 2024-06-17 22:50 | disposition home or self-care (01) ==
LOC: MED 20:51
DX: L02.811 Cutaneous abscess of head [any part, except face] (principal); J02.9 Acute pharyngitis, unspecified; H92.01 Otalgia, right ear; J45.909 Unspecified asthma, uncomplicated; E11.9 Type 2 diabetes mellitus without complications; K21.9 Gastro-esophageal reflux disease without esophagitis; I10 Essential (primary) hypertension; Z90.49 Acquired absence of other specified parts of digestive tract; Z79.899 Other long term (current) drug therapy; Z88.6 Allergy status to analgesic agent; Z88.8 Allergy status to other drugs, medicaments and biological substances
CPT/HCPCS: 96372; 99283; J2270